=== PATIENT | male | born 1985 | race African-American/Black ===

== ENCOUNTER 2021-01-11 12:06 | Emergency (ER) | payer OTHER, MEDICAID ==
[~2021-01-11] VITALS: Ht 172.7 cm; Wt 61.7 kg
--- NOTE | 2021-01-11 12:20 | NUR ---
pt brought in by RA. pt intoxicated.
--- NOTE | 2021-01-11 12:30 | NUR ---
went into the room with MD for assessment. pt intoxicated stating "its an girl and a white girl".
[2021-01-11] MEDS ORDERED: OLANZAPINE 10 MG VIAL IM ONE ×2 (12:45→12:46)
--- NOTE | 2021-01-11 12:50 | NUR ---
pt refused to have urine collected. refused to have VS monitoring attached. MD aware
[2021-01-11 13:01] LABS: BASOPHILS # (AUTO) 0.1 K/uL (0.0-8.0); BASOPHILS % (AUTO) 1.2 % (0.0-2.0); EOSINOPHILS # (AUTO) 0.1 K/uL (0.0-0.7); EOSINOPHILS % (AUTO) 3.2 % (0.0-7.0); HEMATOCRIT 43.6 % (36.7-47.1); HEMOGLOBIN 14.3 g/dL (12.5-16.3); LYMPHOCYTES # (AUTO) 2.3 K/uL (20.0-40.0); LYMPHOCYTES % (AUTO) 53.8 % (20.5-51.5); MEAN CORPUSCULAR HEMOGLOBIN 28.1 uug (23.8-33.4); MEAN CORPUSCULAR HGB CONC 33 g/dL (32.5-36.3); MEAN CORPUSCULAR VOLUME 85.9 fL (73.0-96.2); MONOCYTES # (AUTO) 0.3 K/uL (2.0-10.0); MONOCYTES % (AUTO) 8.2 % (0.0-11.0); NEUTROPHILS # (AUTO) 1.4 K/uL (1.8-8.9); NEUTROPHILS % (AUTO) 33.6 % (38.5-71.5); PLATELET COUNT (AUTO) 364 K/uL (152-348); RED BLOOD CELL COUNT(AUTO) 5.08 MIL/uL (4.06-5.63); WHITE BLOOD COUNT (AUTO) 4.2 K/uL (3.6-10.2)
[2021-01-11 13:09] LABS: CARBON DIOXIDE 24 mmol/L (21-32); CHLORIDE 105 mmol/L (98-107); CREATININE 0.7 mg/dL (0.6-1.3); GLUCOSE 119 mg/dL (74-106); POTASSIUM 3.8 mmol/L (3.5-5.1); UREA NITROGEN, BLOOD 8 mg/dL (7-18)
[2021-01-11 13:14] LABS: ALANINE AMINOTRANSFERASE 43 U/L (16-63); ALKALINE PHOSPHATASE 65 U/L (50-136); ASPARTATE AMINOTRANSFERASE 19 U/L (15-37); BILIRUBIN,DIRECT 0.1 mg/dL (0.0-0.2); BILIRUBIN,TOTAL 0.2 mg/dL (0.2-1.0); TOTAL PROTEIN, SERUM 7.9 g/dL (6.4-8.2)
[2021-01-11 13:20] LABS: ETHANOL 302 MG/DL (0-0)
--- NOTE | 2021-01-11 13:31 | NUR ---
pt sleeping in room.
--- NOTE | 2021-01-11 13:32 | NUR ---
recieved critical lab call, pt's ETOH 0.30%. aware
[2021-01-11 14:02] LABS: ACETAMINOPHEN < 2.0 ug/mL (10-30)
--- NOTE | 2021-01-11 14:35 | NUR ---
found pt standing up peeing all over biohazard bin and the floor. pt then went back to the [place] and back to sleep after.
--- NOTE | 2021-01-11 15:55 | NUR ---
pt ambulated to the restroom. refused to take collection cup for urine.
--- NOTE | 2021-01-11 15:59 | NUR ---
pt asked for food. given turkey sandwich and apple juice.
--- NOTE | 2021-01-11 17:22 | NUR ---
pt cleared by MD for discharge. refused to sign discharge paperwork. pt sobered up. ambulatory.
[2021-01-11 17:23] VITALS: BP 118/78
== END 2021-01-11 17:24 | disposition home or self-care (01) ==
LOC: ER 12:06
DX: G31.2 Degeneration of nervous system due to alcohol (principal); F10.129 Alcohol abuse with intoxication, unspecified; Y90.8 Blood alcohol level of 240 mg/100 ml or more; D47.3 Essential (hemorrhagic) thrombocythemia
CPT/HCPCS: 36415; 85025; A4663; G0480; J2358